=== PATIENT | male | born 1975 | race Caucasian/White ===

== ENCOUNTER 2022-06-22 09:38 | Emergency (ER) | payer OTHER ==
[~2022-06-22] VITALS: Ht 170.2 cm; Wt 73.5 kg
[~2022-06-22 09:38] MED LIST: HYDR1TAB94 PO; IBUP600 PO; METPRE4DP PO
[2022-06-22] MEDS ORDERED: AMOCLA875 PO (11:29)
== END 2022-06-22 11:49 | disposition home or self-care (01) ==
LOC: ER 09:38
DX: J32.9 Chronic sinusitis, unspecified (principal); J45.909 Unspecified asthma, uncomplicated; Z79.899 Other long term (current) drug therapy
CPT/HCPCS: A9270